=== PATIENT | male | born 1985 ===

== ENCOUNTER 2018-07-25 17:03 | Emergency (ER) | payer OTHER ==
[2018-07-25 17:37] VITALS: O2SAT 98
--- NOTE | 2018-07-25 17:40 | C.PDOC ---
History Of Present Illness 32 y/o male presents to ED with c/o numbness to lower lip and increased blinking to left eye for 3 days. Patient states 10am this morning he developed right sided "pressure" chest pain and left arm numbness. CP is non pleuritic, without radiation. First time occurnece. No paralysis or weakness. No slurred speech. No fall or trauma. No tick bites. Patient is speaking in full sentences and denies sob, abdominal pain, nausea, vomiting, diarrhea, weakness, headache, dizziness, change in vision or any other complaints at this time. Time Seen by Provider: 07/25/18 17:37 Chief Complaint (Nursing): Weakness/Neurological Deficit History Per: Patient History/Exam Limitations: no limitations Onset/Duration Of Symptoms: Days Current Symptoms Are (Timing): Still Present Past Medical History Reviewed: Historical Data, Nursing Documentation, Vital Signs Vital Signs: Last Vital Signs Temp 98.4 F 07/25/18 17:21 Pulse 81 07/25/18 17:21 Resp 16 07/25/18 17:21 BP 135/78 07/25/18 17:21 Pulse Ox 98 07/25/18 17:21 - Medical History PMH: No Chronic Diseases Surgical History: No Surg Hx Family History: States: No Known Family Hx Review Of Systems Constitutional: Negative for: Fever, Chills Eyes: Negative for: Vision Change Cardiovascular: Positive for: Chest Pain Respiratory: Negative for: Cough, Shortness of Breath Gastrointestinal: Negative for: Nausea, Vomiting, Abdominal Pain, Diarrhea Skin: Negative for: Rash Neurological: Positive for: Numbness (lower lip, left arm) Physical Exam - Physical Exam Appears: Non-toxic, No Acute Distress Skin: Normal Color, Warm, Dry, No Rash Head: Atraumatic, Normacephalic Eye(s): bilateral: Normal Inspection, PERRL, EOMI Oral Mucosa: Moist Tongue: Normal Appearing, No Swelling, No Lesions Lips: Normal Appearing, No Swelling, No Contusion, No Abrasion, No Laceration, No Lesions, No Erythema, No Pale Teeth: Normal Dentition, No Caries, No Edentulous, No Dentures, No Tender To Palpation Gingiva: Normal Appearing, No Erythema, No Ulceration Throat: Normal, No Erythema, No Exudate, No Drooling, No Mass Neck: Normal, Normal ROM, Supple, Other (no meningeal signs) Cardiovascular: Rhythm Regular Respiratory: Normal Breath Sounds, No Rales, No Rhonchi, No Wheezing Gastrointestinal/Abdominal: Soft, No Tenderness, No Guarding, No Rebound Back: Normal Inspection, No CVA Tenderness Extremity: Normal ROM, No Tenderness, Capillary Refill (<2 seconds) Extremity: Bilateral: Atraumatic Neurological/Psych: Oriented x3, Normal Speech, Normal Cognition, Normal Cranial Nerves, No Cerebellar Signs, Normal Motor, Normal Sensation, No Dysarthria Gait: Steady Other Neurological Findings: No Facial Palsy Extremity: Right: No Drift, Left: No Drift, Upper: No Drift, Lower: No Drift ED Course And Treatment - Laboratory Results Result Diagrams: 07/25/18 18:05 07/25/18 18:05 O2 Sat by Pulse Oximetry: 98 (RA) Pulse Ox Interpretation: Normal Medical Decision Making Medical Decision Makin yr old male p/w lip parathesia. No swelling or difficulty w/ eating or sob. No ludwigs sign. No trauma or fall. Chest pain started 6+ hours prior, pt without RF for [place]: Likely low heart score. No indication of bells palsy: no facial paralysis. No indication of stroke: no unilateral weakness, slurred speech, cerebellar signs or FND. Plan: CT head w/o contrast, CXR, EKG, Blood work ordered EKG: NSR @72BPM, NO STEMI Heart score: Age: 0 RF: 0 Story: 1 EK Troponin pending Progress: CXR IMPRESSION: 7 mm hyperdense nodule at the right lateral mid lung zone, likely calcified granuloma. Biapical pleural thickening. CT head w/o contrast IMPRESSION: Mild streak artifact. The miller-white matter differentiation appears intact. Please note that MRI with diffusion imaging is more sensitive in the detection of acute ischemic event. 19:45 Pt in NAD, CP resolved. Mild numbness improving. Informed pt regarding lung nodule and need to f/u. He is agreeable. No night sweats or hemoptysis per pt. Informed patient of CT findings and discussed the importance of follow up. He is agreeable to plan for discharge home. Disposition Counseled Patient/Family Regarding: Studies Performed, Diagnosis, Need For Followup - Disposition Referrals: [facility] [Outside] [facility] [Outside] Oz Tam MD [Staff Provider] - Galen Roque MD [Staff Provider] - Disposition: HOME/ ROUTINE Disposition Time: 19:48 Condition: STABLE Additional Instructions: MIRANDA AVERY, thank you for letting us take care of you today. Your provider was Demarcus Barajas and you were treated for CHEST PAIN. The emergency medical care you received today was directed at your acute symptoms. If you were prescribed any medication, please fill it and take as directed. It may take several days for your symptoms to resolve. Return to the Emergency Department if your symptoms worsen, do not improve, or if you have any other problems. Please contact your doctor or call one of the physicians/clinics you have been referred to that are listed on the Patient Visit Information form that is included in your discharge packet. Bring any paperwork you were given at discharge with you along with any medications you are taking to your follow up visit. Our treatment cannot replace ongoing medical care by a primary care provider outside of the emergency department. Thank you for allowing the [facility] team to be part of your care today. If you had an X-Ray or CT scan: A Radiologist will review the ED reading if any change in treatment is needed we will contact you. If you had a blood, urine, or wound culture: It will take several days for the results, if any change in treatment is needed we will contact you. If you had an STI test: It will take 48 hours for the results. Please call after 1 week if you have not heard back. Instructions: Chest Pain, Paresthesias (DC), Pulmonary Nodule Forms: [employer] (Beninese) Print Language: THAI - POA Present On Arrival: None - Clinical Impression Clinical Impression: Facial paresthesia, Chest pain - Scribe Statement The provider has reviewed the documentation as recorded by the Joseibbrigitte Russell All medical record entries made by the Janie were at my direction and personally dictated by me. I have reviewed the chart and agree that the record accurately reflects my personal performance of the history, physical exam, medical decision making, and the department course for this patient. I have also personally directed, reviewed, and agree with the discharge instructions and disposition.
[2018-07-25 18:15] LABS: BASO % 0.3 % (0.0-2.0); EOS # 0.2 K/uL (0.0-0.7); EOS % 3.8 % (0.0-4.0); HEMOGLOBIN 15.4 g/dL (12.0-18.0); LYMPH # 1.9 K/uL (1.0-4.3); LYMPH % 29.9 % (20.0-40.0); MEAN CELL VOLUME 90.1 fL (80.0-94.0); MEAN CORPUSCULAR HEMOGLOBIN 30.1 pg (27.0-31.0); MEAN CORPUSCULAR HGB CONC 33.4 g/dL (33.0-37.0); MONO # 0.7 K/uL (0.0-0.8); MONO % 10.2 % (0.0-10.0); NEUT # 3.6 K/uL (1.8-7.0); NEUT % 55.8 % (50.0-75.0); NRBC % 0.1 % (0.0-2.0); RBC 5.13 Mil/uL (4.40-5.90); RED CELL DISTRIBUTION WIDTH 13.1 % (11.5-14.5); WHITE BLOOD COUNT 6.4 K/uL (4.8-10.8)
[2018-07-25 18:26] LABS: ALB/GLOB RATIO 1.6 (1.0-2.1); ALBUMIN 4.6 g/dL (3.5-5.0); ALT/SGPT 26 U/L (21-72); AST/SGOT 23 U/L (17-59); BLOOD UREA NITROGEN 16 mg/dL (9-20); CALCIUM 9.3 mg/dl (8.6-10.4); GFR NON-AFRICAN AMERICAN > 60
--- NOTE | 2018-07-25 18:28 | RAD ---
HISTORY: cp COMPARISON: No prior. TECHNIQUE: Chest PA and lateral FINDINGS: LUNGS: Biapical pleural thickening.No focal consolidation. 7 mm hyperdense nodule at the right lateral mid lung zone, likely granuloma. Please note that chest x-ray has limited sensitivity for the detection of pulmonary masses. PLEURA: No significant pleural effusion identified. No definite pneumothorax . CARDIOVASCULAR: Heart size appears within normal limits. No atherosclerotic calcification present. OSSEOUS STRUCTURES: No acute osseous abnormality identified. VISUALIZED UPPER ABDOMEN: Unremarkable. OTHER FINDINGS: None. IMPRESSION: 7 mm hyperdense nodule at the right lateral mid lung zone, likely calcified granuloma. Biapical pleural thickening.
--- NOTE | 2018-07-25 18:59 | CT ---
Date of service: 07/25/2018 PROCEDURE: CT HEAD WITHOUT CONTRAST. HISTORY: numb tingling of lip COMPARISON: None available. TECHNIQUE: Axial computed tomography images were obtained through the head/brain without intravenous contrast. Radiation dose: Total exam DLP = 1104.45 mGy-cm. This CT exam was performed using one or more of the following dose reduction techniques: Automated exposure control, adjustment of the mA and/or kV according to patient size, and/or use of iterative reconstruction technique. FINDINGS: Mild streak artifact. HEMORRHAGE: No intracranial hemorrhage. BRAIN: No mass effect or edema. The miller-white matter differentiation appears intact. Please note that MRI with diffusion imaging is more sensitive in the detection of acute ischemic event. VENTRICLES: No hydrocephalus. CALVARIUM: Unremarkable. PARANASAL SINUSES: Unremarkable as visualized. No significant inflammatory changes. MASTOID AIR CELLS: Unremarkable as visualized. No inflammatory changes. OTHER FINDINGS: None. IMPRESSION: Mild streak artifact. The miller-white matter differentiation appears intact. Please note that MRI with diffusion imaging is more sensitive in the detection of acute ischemic event.
[2018-07-25 19:39] VITALS: BP 131/83; PULSE 67; RESP 22; TEMP 98.2
--- NOTE | 2018-07-26 23:40 | CARD ---
APPROVED REPORT Date of service: 07/25/2018 EKG Measurement Heart [id number] 130P-10 [id number] <Conclusion> Normal sinus rhythm Normal ECG
== END 2018-07-25 20:00 | disposition home or self-care (01) ==
LOC: C.ER 17:03
DX: R20.2 Paresthesia of skin (principal); R07.9 Chest pain, unspecified